=== PATIENT | female | born 1950 | race Caucasian/White ===

== ENCOUNTER → 2016-09-30 | Outpatient (CLI) | payer OTHER, MEDICARE | LOC: FIMAGING 09:40 | PROVIDERS: ATTEND Nurse Practitioner Adult Health | DX: M54.10 Radiculopathy, site unspecified (principal); M51.36 Other intervertebral disc degeneration, lumbar region; M51.26 Other intervertebral disc displacement, lumbar region; G89.29 Other chronic pain ==